=== PATIENT | female | born 1975 | race Caucasian/White ===

== ENCOUNTER 2022-08-09 09:22 | Emergency (ER) | payer OTHER, SELFPAY ==
[2022-08-09 09:36] VITALS: PULSE 95; RESP 18; TEMP 36.8; O2SAT 95; BMI 28.3
[2022-08-09 09:40] VITALS: BP 185/112; PULSE 95; RESP 18; TEMP 36.8; O2SAT 95; BMI 28.3
--- NOTE | 2022-08-09 09:52 | EXP.UTC ---
Discharge Plan Disposition Patient Disposition: Home, Self-Care Condition: Good Prescriptions Prescriptions: New mupirocin 2 % ointment 1 applic topical BID Qty: 15 0RF Rx Instructions: apply to toe nail Referrals Follow up/Referrals: Clements,Viral [Primary Care Provider] - See instructions Activity Restrictions/Add. Instructions Additional Instructions/Restrictions: keep area clean and dry monitor for s/s of infection follow up with pcp Clinical Impressions Clinical Impression: Injury of nail Instructions Patient Instructions: DI for Nail Avulsion Injury [facility] [place] HPI General Stated complaint: [id number] 4th toe on right foot pain Mode of Arrival: Ambulatory Limitations: No Limitations Time Seen by Provider: 08/09/22 09:52 Description of Symptoms (Recalled from Triage Doc. by RN): c/o right 4th toe nail coming off after hitting it getting out of bed on a stand. History of Present Illness Provider Complaint: 46 yr old female presents for nail injury to 4th toe on rt foot. pt states she hit toe on night stand Related Data Previous Rx's Medication Instructions Recorded mupirocin 2 % topical ointment 1 applic topical BID #15 grams 08/09/22 Allergies Allergy/AdvReac Type Severity Reaction Status Date / Time guaifenesin Allergy Verified 08/09/22 10:00 hydrocodone Allergy Verified 08/09/22 10:00 [facility] Disclaimer: The information contained in this section may have been updated after the patient was seen, as this information can be updated by other users. Social History , [employer]) Smoking Status: Never smoker alcohol intake: never current occupational status: employed Travel in the last 8 weeks: None ROS Obtained: Yes All systems reviewed & no additional complaints except as documented Constitutional Constitutional: Reports system reviewed and no additional complaints, except as documented and Reports as per HPI Eyes Eyes: Reports system reviewed and no additional complaints, except as documented ENT Ears, Nose, Mouth, and Throat: Reports system reviewed and no additional complaints, except as documented Cardiovascular Cardiovascular: Reports system reviewed and no additional complaints, except as documented Respiratory Respiratory: Reports system reviewed and no additional complaints, except as documented Musculoskeletal Musculoskeletal: Reports system reviewed and no additional complaints, except as documented Integumentary/Breasts Skin/Breast: Reports system reviewed and no additional complaints, except as documented, Reports as per HPI and Reports other Neurologic Neurologic: Reports system reviewed and no additional complaints, except as documented Hematologic/Lymphatic Henatologic/Lymphatic: Reports system reviewed and no additional complaints, except as documented Allergic/Immunologic Allergic/Immunologic: Reports system reviewed and no additional complaints, except as documented Physical Exam General General appearance: alert and in no apparent distress Head Head exam: atraumatic, normocephalic and normal inspection Eye Eye exam: Present normal appearance and PERRL Neck Neck exam: Present normal inspection, full ROM and trachea midline; Absent meningismus or lymphadenopathy Respiratory Respiratory exam: Present normal lung sounds bilaterally; Absent respiratory distress Cardiovascular Cardiovascular exam: Present regular rate and normal rhythm; Absent JVD Abdominal Exam Abdominal exam: Absent distention, tenderness or guarding Neurological Exam Neurological exam: Present alert and oriented X3 Psychiatric Psychiatric exam: Present normal affect and normal mood Skin Skin exam: Present warm, dry, normal color and other Expanded Skin Exam Type of lesion: Present other Comment: 4th toe nail pulled off only small piece of skin holding it on Lymphatic Lymphatic Findin
[2022-08-09 10:14] VITALS: BP 185/112; PULSE 95; RESP 18; TEMP 36.8; O2SAT 95
== END 2022-08-09 10:25 | disposition home or self-care (01) ==
PROVIDERS: Emergency Provider Nurse Practitioner Family; PCP Family Medicine
DX: S91.204A Unspecified open wound of right lesser toe(s) with damage to nail, initial encounter (principal); W22.8XXA Striking against or struck by other objects, initial encounter
CPT/HCPCS: 11750; 99213; 99214; G0463

== ENCOUNTER → 2023-02-24 09:20 | Outpatient (POV) | payer OTHER, SELFPAY | PROVIDERS: Visit Provider Dermatology | DX: Z00.00 Encounter for general adult medical examination without abnormal findings (principal) ==